=== PATIENT | female | born 1960 | race Caucasian/White ===

== ENCOUNTER → 2024-08-08 11:11 | Outpatient (CLI) | payer OTHER, SELFPAY ==
[2024-08-08 20:01] LABS: Thyroid Stimulating Hormone 2.95 uIU/mL (0.47-4.68)
[2024-08-10 13:12] LABS: Thyroid Peroxidase Antibodies 14 IU/mL (0-34)
== END ==
PROVIDERS: PCP Family Medicine; Visit Provider Family Medicine
DX: E03.9 Hypothyroidism, unspecified (principal)
CPT/HCPCS: 84443; 86376

== ENCOUNTER → 2024-10-20 10:50 | Outpatient (CLI) | payer OTHER, SELFPAY ==
[2024-10-20 20:16] LABS: Thyroid Stimulating Hormone 7.81 uIU/mL (0.47-4.68)
== END ==
PROVIDERS: PCP Family Medicine; Visit Provider Family Medicine
DX: E89.0 Postprocedural hypothyroidism (principal)
CPT/HCPCS: 84443

== ENCOUNTER → 2024-10-27 15:02 | Outpatient (CLI) | payer OTHER, SELFPAY ==
--- NOTE | 2024-10-27 15:03 | DI.NM.S_ITS ---
PROCEDURE: NM EXERCISE TREADMILL NON NUC COMPARISON: None. INDICATIONS: chest pain, HTN FINDINGS: The patient exercised for 11 minutes and 36 seconds reaching 94% of maximum predicted heart rate. Appropriate BP response to exercise. Outstanding exercise tolerance (12.8METs, BRANDY -74%). No diagnostic ST changes and no angina during exercise or recovery. No ectopy noted on the available rhythm strips. IMPRESSION: Low risk, normal treadmill ECG only stress test from inducible ischemia standpoint. Outstanding exercise tolerance (BRANDY -74%). Dictated by: Suzanne Turner MD on 10/28/2024 at 14:07 Approved by: Suzanne Turner MD on 10/28/2024 at 14:09
== END ==
LOC: NUCM 15:02
PROVIDERS: PCP Family Medicine; Referring Provider Family Medicine; Visit Provider Family Medicine
DX: R07.9 Chest pain, unspecified (principal); I10 Essential (primary) hypertension; E78.2 Mixed hyperlipidemia
CPT/HCPCS: 93017

== ENCOUNTER → 2025-01-17 11:57 | Outpatient (CLI) | payer OTHER, SELFPAY ==
[2025-01-17 20:33] LABS: Thyroid Stimulating Hormone 4.57 uIU/mL (0.47-4.68)
== END ==
PROVIDERS: PCP Family Medicine; Visit Provider Family Medicine
DX: E03.9 Hypothyroidism, unspecified (principal)
CPT/HCPCS: 84443